=== PATIENT | male | born 1975 | race Caucasian/White ===

== ENCOUNTER 2024-03-05 07:10 | Outpatient (CLI) | payer BC, SELFPAY ==
--- NOTE | ~2024-03-05 | XR_ITS ---
EXAMINATION: XR chest 2V DATE: 03/05/2024 07:36 INDICATION: Intermediate uveitis of left eye. TECHNIQUE: Frontal and lateral views of the chest were obtained on 3 radiographs. COMPARISON: None. FINDINGS: There is no pneumonia, pleural effusion, or pneumothorax. The heart size is normal. IMPRESSION: 1. No acute cardiopulmonary disease. Reviewed, dictated and finalized at location A.
== END 2024-03-05 07:11 | disposition home or self-care (01) ==
DX: H30.22 Posterior cyclitis, left eye (principal)
CPT/HCPCS: 71046